=== PATIENT | male | born 1975 | race Caucasian/White ===

== ENCOUNTER 2019-01-11 10:57 | Emergency (ER) | payer OTHER ==
[~2019-01-11] VITALS: Ht 167.6 cm; Wt 93.0 kg
[2019-01-11] MEDS ORDERED: KEFLEX500 M1 PO (11:38)
[2019-01-11 12:06] VITALS: BP 131/83
== END 2019-01-11 12:07 | disposition home or self-care (01) ==
LOC: M.ERS 10:57
DX: S81.812A Laceration without foreign body, left lower leg, initial encounter (principal); W29.3XXA Contact with powered garden and outdoor hand tools and machinery, initial encounter; Y92.89 Other specified places as the place of occurrence of the external cause; Y93.89 Activity, other specified; Y99.8 Other external cause status